=== PATIENT | female | born 1985 | race Caucasian/White ===

== ENCOUNTER 2020-05-22 19:23 | Emergency (ER) | payer SELFPAY ==
[2020-05-22 19:32] VITALS: BP 111/84
--- NOTE | 2020-05-22 20:37 | ER Document Report ---
HPI - HPI Pain Level: 1 Notes: 35-year-old female with right ankle injury that began yesterday after she stepped in a hole that her dog dug. She states that she inverted her foot. She was able to walk on it immediately after the injury. Was able to continue working on her yard. But after she was done mowing the yard she notes that her pain was increased and had difficulty walking. She has taken Tylenol ibuprofen to alleviate her pain. Which does help her pain. She was unable to walk on her ankle today. She states that she has occasional numbness and tingling. - CONSTITUTIONAL Constitutional: DENIES: Fever, Chills - DERM Skin Color: Normal Past Medical History - Social History Smoking Status: Current Every Day Smoker Frequency of alcohol use: None Drug Abuse: Marijuana Family History: Reviewed & Not Pertinent Patient has homicidal ideation: No Vertical Provider Document - HEENT HEENT: Atraumatic - NECK Neck: Normal Inspection - RESPIRATORY Respiratory: No Respiratory Distress - MUSCULOSKELETAL/EXTREMETIES Notes: Right ankle is swollen. Tender to palpation along anterior ankle and anterior medial malleolus. She has decreased range of motion with flexion, extension inversion, eversion and rotation. She has good distal sensation to light touch. 2+ capillary refill. Dorsalis pedis pulses are palpable and strong - DERM Notes: No ecchymosis Course - Re-evaluation Re-evalutation: 05/22/20 20:37 I will image her right ankle. 05/22/20 22:02 No fracture to her right ankle or right foot. I ordered a splint and crutches for her. I discussed these findings with the patient. I recommend she become weightbearing as she is able. Can use Tylenol ibuprofen help alleviate her pain. I discussed resting, elevating and ice to help alleviate her pain. I discussed with her that it can take to 3 weeks to have full resolution of symptoms. I recommend that she does not have resolution of her symptoms or she follows up with her primary care provider or an orthopedic surgeon. She may return to the emergency department for worsening symptoms or development of new symptoms. Patient acknowledges and verbalizes understanding of instructions and plan. All questions answered. - Vital Signs Vital signs: Temp Pulse Resp BP Pulse Ox 98.3 F 93 16 111/84 99 05/22/20 20:28 05/22/20 19:30 05/22/20 19:30 05/22/20 19:30 05/22/20 19:30 Procedures - Immobilization Right Ankle Pre-Proc Neuro Vasc Exam: Normal Immobilizer type: Posterior ankle Post-Proc Neuro Vasc Exam: Normal Discharge - Discharge Clinical Impression: Right ankle sprain Qualifiers: Encounter type: initial encounter Involved ligament of ankle: unspecified ligament Qualified Code(s): S93.401A - Sprain of unspecified ligament of right ankle, initial encounter Condition: Stable Disposition: HOME, SELF-CARE Instructions: Use of Crutches ([facility]), Angel Wrap (OM), Ice & Elevation (OM), Splint Precautions (OM), Sprained Ankle ([facility]) Additional Instructions: Your x-ray does not show any acute fracture. You have a sprained ankle. Keep the area elevated, apply ice 20 minutes every 2 hours, and use crutches as needed. You should take ibuprofen 600 mg every 6 hours as needed for pain. Please return if you have worsening pain and swelling, fever greater than 101, you notice spreading redness from the area, or have any other symptoms that are concerning to you. Please follow-up with orthopedic surgery if your symptoms have not improved in the next 2-3 weeks. Referrals: ROBERTH WEINER NP [Primary Care Provider] - Follow up as needed
--- NOTE | 2020-05-22 21:39 | RADIOLOGY REPORT (SQ) ---
XR FOOT 1-2 VIEWS, XR ANKLE 3 OR MORE VIEWS CLINICAL STATEMENT: ankle injury COMPARISON: None FINDINGS: Bony alignment is anatomic. There is no fracture or dislocation. Ankle mortise is not widened. Mild medial soft tissue swelling involving the ankle. IMPRESSION: No fracture.
== END 2020-05-22 23:19 | disposition home or self-care (01) ==
LOC: ER 19:23
DX: S93.401A Sprain of unspecified ligament of right ankle, initial encounter (principal); X50.0XXA Overexertion from strenuous movement or load, initial encounter; Y93.H9 Activity, other involving exterior property and land maintenance, building and construction; Y92.007 Garden or yard of unspecified non-institutional (private) residence as the place of occurrence of the external cause; F17.200 Nicotine dependence, unspecified, uncomplicated; F12.10 Cannabis abuse, uncomplicated
CPT/HCPCS: 99283